=== PATIENT | male | born 1940 | race Caucasian/White ===

== ENCOUNTER 2018-03-23 01:24 | Emergency (ER) | payer MEDICARE ==
[~2018-03-23] VITALS: Ht 170.2 cm; Wt 77.1 kg
--- OUTSIDE RECORDS SUMMARY | 2018-03-23 01:26 | XMS REPORT | Summary of Care ---
Author Author [facility] Organization [facility] Address Unknown Phone Unavailable Encounter BREANN Platt(TORITO) [id number] Date(s): 07/07/15 - 07/07/15 [facility] [address] [place] [address]- [phone] Discharge Disposition: Home Attending Physician: Singh Caballero MD Referring Physician: Singh Caballero MD Vital Signs 1 2 3 Most recent to oldest [Reference Range]: 177.8 cm (07/06/15 9:09 AM) Height 125/79 mmHg (07/07/15 9:30 AM) 117/69 mmHg (07/07/15 9:15 AM) 157/83 mmHg *HI* (07/07/15 8:23 AM) Blood Pressure [90-140/60-90 mmHg] 14 BRMIN (07/07/15 9:30 AM) 15 BRMIN (07/07/15 9:15 AM) 18 BRMIN (07/07/15 8:23 AM) Respiratory Rate [14-20 BRMIN] 74.545 kg (07/06/15 9:09 AM) Weight 23.58 m2 (07/06/15 9:09 AM) Body Mass Index Problem List Condition Effective Dates Status Health Status Informant Effusion of Active knee(Confirmed)1 GERD - Active Gastro-esophageal reflux disease(Confirmed) Hiatal Active hernia(Confirmed) Hypercholesterolemia Active (Confirmed) Hyperlipidemia(Confi Active rmed) Nocturia(Confirmed) Active 1left Allergies, Adverse Reactions, Alerts Substance Reaction Severity Status NKDA Active Medications Centrum Silver oral tablet 1 tab, PO, Daily, # 30 tab, 0 Refill(s) Start Date: 07/06/15 Status: Ordered omega-3 polyunsaturated fatty acids PO, 0 Refill(s) Start Date: 07/06/15 Status: Ordered simvastatin 40 mg oral tablet 40 mg=1 tab, PO, Bedtime, # 90 tab, 1 Refill(s) Start Date: 07/06/15 Status: Ordered Sodium Chloride 0.9% IV 1,000 mL 1,000 mL, Rate: 25 ml/hr, Infuse over: 40 hr, Route: IV, Dosing Weight 74.545 kg , Total Volume: 1,000, Start date: 07/07/15 8:21:00 CDT, Duration: 1 day, Stop d ate: 07/08/15 8:20:00 CDT Start Date: 07/07/15 Stop Date: 07/07/15 Status: Discontinued Results No data available for this section Immunizations No data available for this section Procedures Procedure Date Related Diagnosis Body Site Hiatus hernia repair Social History Social History Type Response Substance Abuse Use: None. Alcohol Current, Frequency: 1-2 times per month. Smoking Status Former smoker; Type: Cigarettes; Exposure to Tobacco Smoke None; Cigarette Smoking Last 365 Days No; Reg Smoking Cessation Counseling No Assessment and Plan No data available for this section
--- OUTSIDE RECORDS SUMMARY | 2018-03-23 01:26 | XMS REPORT | Summary of Care ---
Author Author [facility] Organization [facility] Address Unknown Phone Unavailable Encounter [facility] L[facility](TORITO) [id number] Date(s): 03/07/16 - 03/07/16 [facility] [address] [place] [address]- [phone] Discharge Disposition: Home or Self Care Attending Physician: Lanre Pichardo MD Referring Physician: Lanre Pichardo MD Vital Signs No data available for this section Problem List Condition Effective Dates Status Health Status Informant Effusion of Active knee(Confirmed)1 GERD - Active Gastro-esophageal reflux disease(Confirmed) Hiatal Active hernia(Confirmed) Hypercholesterolemia Active (Confirmed) Hyperlipidemia(Confi Active rmed) Nocturia(Confirmed) Active 1left Allergies, Adverse Reactions, Alerts Substance Reaction Severity Status NKDA Active Medications No data available for this section Results No data available for this section [...]
--- OUTSIDE RECORDS SUMMARY | 2018-03-23 01:26 | XMS REPORT | Continuity of Care Document ---
Author Author [facility] juli[facility] Address Unknown Phone Unavailable Problems Problem Status Onset Date Classification Date Reported Comments Source HYPERCALCEMIA Active 12/22/2017 [facility] DX: PROSTATE CANCER Active 03/04/2016 [facility] UNK Active 07/03/2015 [facility] Effusion of knee<sup>1</sup> Active Problem 03/10/2016 left [facility] GERD - Gastro-esophageal reflux disease Active Problem 03/10/2016 [facility] Hiatal hernia Active Problem 03/10/2016 [facility] Hypercholesterolemia Active Problem 03/10/2016 [facility] Hyperlipidemia Active Problem 03/10/2016 [facility] Nocturia Active Problem 03/10/2016 [facility] MALIGNANT NEOPLASM OF PROSTATE Active [facility] PRIMARY HYPERPARATHYROIDISM Active [facility] Medications Medication Details Route Status Patient Instructions Ordering Provider Order Date Source Sodium Chloride 0.154 MEQ/ML Injectable Solution 1,000 mL, Rate: 25 ml/hr, Infuse over: 40 hr, Route: IV, Dosing Weight 74.545 kg, Total Volume: 1,000, Start date: 07/07/15 8:21:00 CDT, Duration: 1 day, Stop date: 07/08/15 8:20:00 CDT Inactive 07/07/2015 [facility] simvastatin 40 mg oral tablet 40 mg=1 tab, PO, Bedtime, # 90 tab, 1 Refill(s) Active 07/06/2015 [facility] omega-3 polyunsaturated fatty acids PO, 0 Refill(s) Active 07/06/2015 [facility] Centrum Silver oral tablet 1 tab, PO, Daily, # 30 tab, 0 Refill(s) Active 07/06/2015 [facility] Allergies, Adverse Reactions, Alerts Substance Category Reaction Severity Reaction type Status Date Reported Comments Source Immunizations Immunization Date Given Site Status Last Updated Comments Source Results Order Name Results Value Reference Range Date Interpretation Comments Source Neck soft tissue w contrast CT Neck soft tissue w contrast CT EXAM: CT OF THE NECK WITH AND WITHOUT CONTRAST -- parathyroid protocol. DATE: 11/29/2017 1:09 PM CDT INDICATION: - E21.0 Primary hyperparathyroidism COMPARISON: None. TECHNIQUE: Precontrast axial images of the neck at the level of the thyroid gland. Postcontrast axial images of the neck from the level of the mandible to the aortic arch were then obtained in the arterial and venous phases. Reformatted images in the sagittal and coronal plane were included. IV contrast: 100 mL Omnipaque 350. FINDINGS: There is a round lesion abutting the posterior margin of the lower pole the left thyroid lobe. On sagittal images it measures 1.7 cm craniocaudal by 1.8 cm AP (image 45 series 500). On coronal and axial images measures 1.3 cm transverse. It is low attenuation relative to the adjacent thyroid on noncontrast images. It demonstrates heterogeneous peripheral and central areas of enhancement on arterial images. Some of the central areas of hypoenhancement on the arterial phase appear to fill in on the delayed phase. It abuts the posterior margin of the thyroid. On several of the images there appears to be a cleft or fat plane the inferior anterior aspect of the lesion from the thyroid (image 44-45 series 500). There is a subcentimeter enhancing lesion within or abutting the medial posterior margin of the right thyroid lobe. It measures 5 x 4 x 7 mm. It enhances avidly on the arterial phase with some washout seen on the venous phase when it becomes more isodense to the contiguous thyroid gland. On several images it appears to be within the thyroid parenchyma rather than merely abutting the posterior margin (image 30 series 500, image 50 series 6). More inferiorly it appears to abut the posterior margin of the thyroid (image 52 series 6). A subcentimeter hypoenhancing thyroid nodule is also seen in the lower pole the right lobe. Calcifications in the left palatine tonsil likely represent the sequela of remote infection. Visualized portions of the oropharynx and oral cavity are otherwise unremarkable. The larynx and hypopharynx are unremarkable. The submandibular glands are normal. The visualized inferior portions of the parotid glands are unremarkable. No pathologically enlarged lymph nodes are identified. Degenerative changes in the cervical spine. The lung apices are clear. IMPRESSION: 1.8 cm heterogeneously enhancing nodule abutting the posterior margin of the lower pole of the left thyroid lobe may represent a parathyroid adenoma. Given the apparent fat plane between portions of this nodule and the thyroid gland, exophytic thyroid nodule is considered less likely. 7 mm avidly enhancing nodule within or abutting the posterior medial margin of the lower pole the right thyroid lobe may represent a parathyroid adenoma or thyroid nodule. 11/29/2017 - - Read by: Dolly Franco MD Dictated Date/time: 11/29/17 14:03 Electronically Signed by: Dolly Franco MD 11/29/17 14:46 FINAL REPORT PRATIK Julieta Bone Density [employer] MA Bone Density [employer] MA MALE BONE DENSITY ASSESSMENT: 10/03/2017 CLINICAL DATA: E21.3 Hyperparathyroidism, unspecified. E21.3 Hyperparathyroidism, Unspecified/E21.3 Hyperparathyroidism, Unspecified FINDINGS: Bone density evaluation was performed 10/03/2017 on the left ultra distal radius and ulna using a Hologic unit. The BMD average for the exam is 0.642 g/cm2. The T-score is -3.30 and the Z-score is -1.70. This matches the World Health Organization's criteria for osteoporosis and places the patient at a high risk for fracture. An additional bone density evaluation was performed 10/03/2017 on the right femur neck using a Hologic unit. The BMD average for the exam is 0.474 g/cm2. The T-score is -3.40 and the Z-score is -2.00. This matches the World Health Organization's criteria for osteoporosis and places the patient at a high risk for fracture. An additional bone density evaluation was performed 10/03/2017 on the left femur neck using a Hologic unit. The BMD average for the exam is 0.447 g/cm2. The T- score is -3.60 and the Z-score is -2.20. This matches the World Health Organization's criteria for osteoporosis and places the patient at a high risk for fracture. An additional bone density evaluation was performed 10/03/2017 on the right hip using a Hologic unit. The BMD average for the exam is 0.656 g/cm2. The T-score is -2.50 and the Z-score is -1.70. This matches the World Health Organization's criteria for osteoporosis and places the patient at a high risk for fracture. An additional bone density evaluation was performed 10/03/2017 on the left hip using a Hologic unit. The BMD average for the exam is 0.667 g/cm2. The T-score is -2.40 and the Z-score is -1.60. This matches the World Health Organization's criteria for osteopenia and places the patient at a medium risk for fracture. An additional bone density evaluation was performed 10/03/2017 on the AP L1-L4 region of spine using a Hologic unit. The BMD average for the exam is 0.911 g/cm2. The T-score is -1.60 and the Z-score is -0.60. This matches the World Health Organization's criteria for osteopenia and places the patient at a medium risk for fracture. IMPRESSION: OSTEOPOROSIS Patient is at high risk for fracture. This exam was interpreted at [id number] for THIERRY Renteria 15. Kurtis Howe M.D., jp/aniceto:10/03/2017 12:44:31 Freezing Room Worker(s): Kendra AMEZCUA(Gray)(Rex), [facility] 10/03/2017 - - Read by: Kurtis Howe MD Dictated Date/time: 10/03/17 12:44 Electronically Signed by: Kurtis Howe MD 10/03/17 12:44 FINAL REPORT [facility] Bone scan NM Bone scan NM Bone scan NM CLINICAL HX: prostate cancer. COMPARISON: none TECHNIQUE: Delayed whole-body imaging was performed following IV administration of 25 mCi of Technetium 99m-MDP. Spot images of the pelvis, thorax and skull are also submitted for review. FINDINGS: Physiologic distribution of tracer is noted in the regional skeleton. No abnormal accumulation of tracer activity is present to suggest metastatic disease. Increased activity in the peripheral joints is consistent with degenerative change. Symmetric tracer distribution is noted in the kidneys.. Normal bladder activity is seen. IMPRESSION: No significant scintigraphic abnormality is noted on the whole body bone scan. : [id number] 03/07/2016 - - Read by: Bill Andino MD Dictated Date/time: 03/07/16 16:55 Electronically Signed by: Bill Andino MD 03/07/16 16:56 FINAL REPORT [facility] Vital Signs Vital Sign Value Date Comments Source Respitory Rate 14 07/07/2015 [facility] Systolic (mm Hg) 125 07/07/2015 [facility] Diastolic (mm Hg) 79 07/07/2015 [facility] Systolic (mm Hg) 117 07/07/2015 [facility] Diastolic (mm Hg) 69 07/07/2015 [facility] Respitory Rate 15 07/07/2015 [facility] Systolic (mm Hg) 157 07/07/2015 [facility] Diastolic (mm Hg) 83 07/07/2015 [facility] Respitory Rate 18 07/07/2015 [facility] Weight 74.545 07/06/2015 [facility] BMI Calculated 23.58 07/06/2015 [facility] Height 177.8 cm 07/06/2015 [facility] Encounters Location Location Details Encounter Type Encounter Number Reason For Visit Attending Provider ADM Date DC Date Status Source [facility] Bedded Outpatient [id number] Singh Caballero 07/07/2015 07/07/2015 [facility] Outpatient [id number] Audrey Pichardo 03/07/2016 03/08/2016 [facility] Outpatient [id number] URODYNAMICS 03/01/2018 Active [facility] Outpatient [id number] AUDREY PICHARDO 03/12/2018 Active [facility] Outpatient [id number] NURSE VISIT 04/04/2018 Active [facility] Procedures Procedure Code Date Perfomer Comments Source Hiatus hernia repair [id number] [facility]
[2018-03-23] MEDS ORDERED: SODIUM CHLORIDE 0.9% 1000ML 1,000 ML IV STA (01:48)
[2018-03-23] MEDS ORDERED: CEFTRIAXONE SOD 1 GM VIAL IV ONE (02:00)
[2018-03-23] MEDS ORDERED: ENALAPRILAT IV INJ 1.25 MG/ML VIAL IV STA (02:27)
[2018-03-23] MEDS ORDERED: AMLODIPINE BESYLATE 5 MG TAB PO ONE (02:30)
[2018-03-23 02:44] LABS: BASOPHILS # (AUTO) 0.1 (0.0-0.1); BASOPHILS % 0.6 % (0.0-1.0); EOSINOPHILS # (AUTO) 0.2 (0.0-0.4); EOSINOPHILS % 1.9 % (0.0-6.0); HEMATOCRIT 42.2 % (38.2-49.6); HEMOGLOBIN 13.9 g/dL (14.0-18.0); LYMPHOCYTES # (AUTO) 2.1 (1.0-3.2); LYMPHOCYTES % 21.9 % (18.0-39.1); MEAN CORPUSCULAR HGB CONC 32.9 g/dL (31-35); MEAN CORPUSCULAR VOLUME 90.9 fL (81-99); MONOCYTES % 10.2 % (4.4-11.3); NEUTROPHILS # (AUTO) 6.1 (2.1-6.9); NEUTROPHILS % 65.3 % (38.7-80.0); PLATELET COUNT 313 x10e3/uL (140-360); RED BLOOD COUNT 4.64 x10e6/uL (4.3-5.7); RED CELL DISTRIBUTION WIDTH 12.6 % (11.7-14.4)
[2018-03-23 02:50] LABS: COLOR,URINE BROWN (YELLOW)
[2018-03-23 02:51] LABS: BACTERIA,URINE MANY /HPF; BILIRUBIN,URINE NEGATIVE (NEGATIVE); CLARITY,URINE CLOUDY (CLEAR); KETONES,URINE 1+ (NEGATIVE); LEUKOCYTE ESTERASE ,URINE TRACE (NEGATIVE); NITRITE,URINE POSITIVE (NEGATIVE); PROTEIN,URINE DIPSTICK 2+ (NEGATIVE); RBC,URINE >50 /HPF (0-5); URINE UROBILINOGEN 0.2 mg/dL (0.2 - 1)
[2018-03-23 02:52] LABS: EPITHELIAL CELLS,URINE RARE /LPF; MUCUS,URINE MANY (RARE)
[2018-03-23 02:55] LABS: INR 0.84; PROTHROMBIN TIME 12.3 seconds (11.9-14.5)
[2018-03-23 02:56] LABS: PARTIAL THROMBOPLASTIN TIME 30.5 seconds (23.8-35.5)
[2018-03-23 03:03] LABS: ALANINE AMINOTRANSFERASE 21 IU/L (0-55); ALBUMIN 3.8 g/dL (3.5-5.0); ALBUMIN/GLOBULIN RATIO 1.5 (0.8-2.0); ALKALINE PHOSPHATASE 79 IU/L (40-150); ANION GAP 13.7 mmol/L (8-16); BLOOD UREA NITROGEN 15 mg/dL (7-26); BUN/CREATININE RATIO 18 (6-25); CALCIUM 8.7 mg/dL (8.4-10.2); CARBON DIOXIDE 24 mmol/L (22-29); CHLORIDE 103 mmol/L (98-107); CREATININE, SERUM 0.84 mg/dL (0.72-1.25); EST GLOMERULAR FILTRATION RATE > 60 ML/MIN (60-); GLUCOSE 121 mg/dL (74-118); POTASSIUM 3.7 mmol/L (3.5-5.1); SODIUM 137 mmol/L (136-145)
[2018-03-23] MEDS ORDERED: SODIUM CHLORIDE 0.9% 50ML 50 ML ONE (03:25)
[2018-03-23] MEDS ORDERED: IOPAMIDOL 370 MG/ML 200 ML INFUS..BTL INJ ONE (03:25)
--- NOTE | 2018-03-23 04:00 | Diagnostic Imaging Report ---
EXAM: CT Abdomen and Pelvis WITH contrast INDICATION: Prostate cancer, hematuria COMPARISON: None. TECHNIQUE: Abdomen and Pelvis was scanned utilizing a multidetector helical scanner after administration of IV contrast. Coronal and sagittal reformations were obtained. IV CONTRAST: 100 mL Isovue-370 COMPLICATIONS: None RADIATION DOSE: Total DLP:343 mGy*cm Estimated effective dose: (DLP x 0.015 x size factor) mSv CTDIvol has been reviewed. It is below the limits set by the Radiation Protocol Committee (RPC). Appropriate CT dose reduction techniques were utilized. FINDINGS: Abdomen: Lung Bases: Atelectasis. Solid Organs: Tiny layering gallstones. Mild hepatic steatosis. Solid organs otherwise unremarkable. No ureteral lithiasis. Upper GI Tract: No small bowel obstructive changes. Vascularity: No aortic aneurysm. Lymph Nodes: No suspicious adenopathy. Other: None. Pelvis: Bladder: Moderate wall thickening of urinary bladder with mild surrounding inflammatory changes. Numerous calcifications, largest 18 mm. Prostate indents base of bladder. Other: None. Colon: No acute colonic findings. Bones: No acute findings. IMPRESSION: 1. Moderate thickening urinary bladder wall. Correlation for cystitis. Multiple calcifications present within the urinary bladder, largest 18 mm. Urologic follow-up recommended. 2. Cholelithiasis without distinct inflammatory changes. Signed by: Dr. Bud Erickson MD on 03/23/2018 3:56 AM
[2018-03-23 04:31] VITALS: BP 156/86
== END 2018-03-23 04:53 | disposition home or self-care (01) ==
LOC: ER 01:24
DX: R30.0 Dysuria (principal); N30.01 Acute cystitis with hematuria
CPT/HCPCS: 36415; 74177; 80053; 81001; 85025; 85610; 85730; 87086; 87186; 99283; J0696; J7030; Q9967

== ENCOUNTER 2022-04-28 11:55 | Emergency (ER) | payer MEDICARE ==
[2022-04-28 12:21] LABS: BASOPHILS # (AUTO) 0.1 (0.0-0.1); BASOPHILS % 0.4 % (0.0-1.0); EOSINOPHILS % 0.1 % (0.0-6.0); HEMATOCRIT 39.7 % (38.2-49.6); HEMOGLOBIN 12.9 g/dL (14.0-18.0); LYMPHOCYTES # (AUTO) 3.4 (1.0-3.2); LYMPHOCYTES % 24.7 % (18.0-39.1); MEAN CORPUSCULAR HEMOGLOBIN 29.9 pg (28-32); MEAN CORPUSCULAR HGB CONC 32.5 g/dL (31-35); MEAN CORPUSCULAR VOLUME 91.9 fL (81-99); NEUTROPHILS # (AUTO) 9.3 (2.1-6.9); NEUTROPHILS % 67.5 % (38.7-80.0); PLATELET COUNT 249 x10e3/uL (140-360); RED BLOOD COUNT 4.32 x10e6/uL (4.3-5.7); RED CELL DISTRIBUTION WIDTH 11.9 % (11.7-14.4)
[2022-04-28 12:40] LABS: ALBUMIN 3.9 g/dL (3.5-5.0); ALBUMIN/GLOBULIN RATIO 1.6 (0.8-2.0); ANION GAP 14.6 mmol/L (8-16); CALCIUM 8.7 mg/dL (8.4-10.2); CREATININE, SERUM 0.91 mg/dL (0.72-1.25); POTASSIUM 3.6 mmol/L (3.5-5.1)
[2022-04-28 13:09] LABS: CLARITY,URINE SL CLOUDY (CLEAR); COLOR,URINE YELLOW (YELLOW)
[2022-04-28 13:11] LABS: KETONES,URINE 2+ (NEGATIVE); LEUKOCYTE ESTERASE ,URINE NEGATIVE (NEGATIVE); NITRITE,URINE NEGATIVE (NEGATIVE); PROTEIN,URINE DIPSTICK 1+ (NEGATIVE); URINE UROBILINOGEN 1 mg/dL (0.2 - 1)
[2022-04-28 13:19] LABS: BACTERIA,URINE RARE /HPF; RBC,URINE 0-5 /HPF (0-5); WBC,URINE (MAN) 0-5 /HPF (0-5)
[2022-04-28 13:20] LABS: MUCUS,URINE MODERATE (RARE)
[2022-04-28] MEDS ORDERED: MECLIZINE HCL12.5 MG PO (13:55)
== END 2022-04-28 15:15 | disposition home or self-care (01) ==
LOC: ER 12:01
DX: R51.9 Headache, unspecified (principal); R42 Dizziness and giddiness; E78.5 Hyperlipidemia, unspecified; R73.9 Hyperglycemia, unspecified; Z85.46 Personal history of malignant neoplasm of prostate; Z20.822 Contact with and (suspected) exposure to COVID-19
CPT/HCPCS: 0223U; 36415; 70450; 71045; 80053; 81001; 84484; 85025; 93005; 99284